=== PATIENT | female | born 1985 | race Caucasian/White ===

== ENCOUNTER 2017-12-08 11:11 | Outpatient (CLI) | payer OTHER ==
[~2017-12-08 11:11] MED LIST: SYNTHROID50 MCG
[2017-12-09] MEDS ORDERED: PRENATAL TABLE1 EAC2 PO (13:54)
[2017-12-09] MEDS ORDERED: SYNTHROID50 MCG PO (13:55)
[2017-12-09] MEDS ORDERED: ACTIGALL300 MG PO (13:55)
[2017-12-09] MEDS ORDERED: NIFE60TA3 PO (13:55)
== END 2017-12-08 13:21 | disposition home or self-care (01) ==
LOC: NST 11:11
DX: Z34.83 Encounter for supervision of other normal pregnancy, third trimester (principal)

== ENCOUNTER 2017-12-09 12:38 | Inpatient (IN) | payer OTHER ==
[~2017-12-09] VITALS: Ht 154.9 cm; Wt 58.1 kg
[2017-12-09] MEDS ORDERED: PRENATAL TABLE1 EAC2 PO (13:54)
[2017-12-09] MEDS ORDERED: NIFE60TA3 PO (13:55)
[2017-12-09] MEDS ORDERED: SYNTHROID50 MCG PO (13:55)
[2017-12-09] MEDS ORDERED: ACTIGALL300 MG PO (13:55)
== END 2017-12-16 12:29 | disposition home or self-care (01) | DRG 765 ==
LOC: LDR 12:38 → OB/GYN 12:38 → SURG-SUITE 12-13 19:37
PROVIDERS: Obstetrics & Gynecology Maternal & Fetal Medicine
PROC: 4A1HXCZ Monitoring of Products of Conception, Cardiac Rate, External Approach (ICD-10-PCS; 2017-12-09)
PROC: BY4FZZZ Ultrasonography of Third Trimester, Single Fetus (ICD-10-PCS; 2017-12-11)
PROC: 4A033R1 Measurement of Arterial Saturation, Peripheral, Percutaneous Approach (ICD-10-PCS; 2017-12-12)
PROC: 10D00Z1 Extraction of Products of Conception, Low, Open Approach (ICD-10-PCS; principal; 2017-12-12 17:00)
DX: O62.1 Secondary uterine inertia (principal); O60.14X0 Preterm labor third trimester with preterm delivery third trimester, not applicable or unspecified; O75.2 Pyrexia during labor, not elsewhere classified; Z3A.34 34 weeks gestation of pregnancy; Z37.0 Single live birth; O42.913 Preterm premature rupture of membranes, unspecified as to length of time between rupture and onset of labor, third trimester

== ENCOUNTER 2019-10-03 14:04 | Outpatient (CLI) | payer OTHER ==
[~2019-10-03 14:04] MED LIST changes: +ACTIGALL300 MG PO; +NIFE60TA3 PO; +PRENATAL TABLE1 EAC2 PO; +SYNTHROID50 MCG PO
== END 2019-10-03 16:27 | disposition home or self-care (01) ==
LOC: NST 14:04
DX: Z34.82 Encounter for supervision of other normal pregnancy, second trimester (principal)

== ENCOUNTER 2019-10-14 14:26 | Outpatient (CLI) | payer OTHER | END 2019-10-14 17:41 | disposition home or self-care (01) | LOC: NST 14:26 | DX: Z34.82 Encounter for supervision of other normal pregnancy, second trimester (principal) ==

== ENCOUNTER 2019-12-16 14:05 | Outpatient (CLI) | payer OTHER | END 2019-12-16 22:09 | disposition home or self-care (01) | LOC: NST 14:05 | DX: Z34.83 Encounter for supervision of other normal pregnancy, third trimester (principal) ==

== ENCOUNTER 2019-12-23 16:30 | Inpatient (IN) | payer OTHER ==
[~2019-12-23] VITALS: Ht 154.9 cm; Wt 3.2 kg
[2020-01-07] MEDS ORDERED: TIROSINT75 MCG (16:22)
== END 2020-01-13 18:15 | disposition home or self-care (01) | DRG 785 ==
LOC: LDR 01-11 04:59 → SURG-SUITE 01-11 04:59 → LDR 01-15 13:15 → OB/GYN 01-15 13:15
PROVIDERS: ADMIT Obstetrics & Gynecology
PROC: 0UL70ZZ Occlusion of Bilateral Fallopian Tubes, Open Approach (ICD-10-PCS; 2020-01-11)
PROC: 4A1HXCZ Monitoring of Products of Conception, Cardiac Rate, External Approach (ICD-10-PCS; 2020-01-11)
PROC: 10D00Z1 Extraction of Products of Conception, Low, Open Approach (ICD-10-PCS; principal; 2020-01-11 07:15)
DX: O82 Encounter for cesarean delivery without indication (principal); Z37.0 Single live birth; Z30.2 Encounter for sterilization; Z3A.38 38 weeks gestation of pregnancy